=== PATIENT | female | born 1945 | race Asian ===

== ENCOUNTER 2017-05-04 10:42 | Day surgery (SDC) | payer OTHER ==
[2017-05-04 11:23] VITALS: BMI 22.6
[2017-05-04 11:40] VITALS: BP 139/75; PULSE 66; TEMP 99.1
[2017-05-04] MEDS ORDERED: OMALIZUMAB 150 MG/VIAL ML SQ SCH (12:00)
[2017-05-04] MEDS ORDERED: EPINEPHrine 1:1,000 0.3 MG/0.3 ML SYR IM SCH (12:15)
== END 2017-05-04 11:45 | disposition home or self-care (01) ==
LOC: JINFUSION 10:42
PROVIDERS: ATTEND Internal Medicine Pulmonary Disease
PROC: 3E013GC Introduction of Other Therapeutic Substance into Subcutaneous Tissue, Percutaneous Approach (ICD-10-PCS; principal; 2017-05-04)
DX: J45.40 Moderate persistent asthma, uncomplicated (principal)
CPT/HCPCS: 96372; J2357

== ENCOUNTER 2017-05-15 10:02 | Day surgery (SDC) | payer OTHER ==
[2017-05-15] MEDS ORDERED: EPINEPHrine/PF 1 MG/1 ML (1:1,000) AMPULE SQ PRN (10:31)
[2017-05-15] MEDS ORDERED: OMALIZUMAB 150 MG/VIAL ML SQ ONE (11:00)
[2017-05-15 11:51] VITALS: BP 130/64; PULSE 67; TEMP 98.6
== END 2017-05-15 11:58 | disposition home or self-care (01) ==
LOC: JINFUSION 10:02
PROVIDERS: ATTEND Internal Medicine Pulmonary Disease
PROC: 3E013GC Introduction of Other Therapeutic Substance into Subcutaneous Tissue, Percutaneous Approach (ICD-10-PCS; principal; 2017-05-15)
DX: J45.40 Moderate persistent asthma, uncomplicated (principal)
CPT/HCPCS: 96372; J2357

== ENCOUNTER 2017-06-08 10:07 | Day surgery (SDC) | payer OTHER ==
[2017-06-08 10:55] VITALS: BP 122/62; PULSE 72; TEMP 98.1
[2017-06-08] MEDS ORDERED: XOLAIR 150 MG SQ ONE (11:30)
[2017-06-08] MEDS ORDERED: EPINEPHrine/PF 1 MG/1 ML (1:1,000) AMPULE SQ PRN (11:30)
[2017-06-08] MEDS ORDERED: XOLAIR SCJ SCH (11:40)
== END 2017-06-08 11:45 | disposition home or self-care (01) ==
LOC: JINFUSION 10:07
PROVIDERS: ATTEND Internal Medicine Pulmonary Disease
PROC: 3E013GC Introduction of Other Therapeutic Substance into Subcutaneous Tissue, Percutaneous Approach (ICD-10-PCS; principal; 2017-06-08)
DX: J45.40 Moderate persistent asthma, uncomplicated (principal)
CPT/HCPCS: 96372

== ENCOUNTER 2017-06-22 09:31 | Day surgery (SDC) | payer OTHER ==
[2017-06-22] MEDS ORDERED: XOLAIR 150 MG SQ ONE (11:00)
[2017-06-22] MEDS ORDERED: EPINEPHrine/PF 1 MG/1 ML (1:1,000) AMPULE SQ PRN (11:00)
[2017-06-22 11:20] VITALS: BP 164/67; PULSE 67; TEMP 98.8
== END 2017-06-22 11:21 | disposition home or self-care (01) ==
LOC: JINFUSION 09:31
PROVIDERS: ATTEND Internal Medicine Pulmonary Disease
PROC: 3E013GC Introduction of Other Therapeutic Substance into Subcutaneous Tissue, Percutaneous Approach (ICD-10-PCS; principal; 2017-06-22)
DX: J45.40 Moderate persistent asthma, uncomplicated (principal)
CPT/HCPCS: 96372

== ENCOUNTER 2017-07-13 09:52 | Day surgery (SDC) | payer OTHER ==
[2017-07-13] MEDS ORDERED: EPINEPHrine/PF 1 MG/1 ML (1:1,000) AMPULE SQ PRN (10:35)
[2017-07-13] MEDS ORDERED: OMALIZUMAB 150 MG/VIAL ML SQ ONE (11:00)
[2017-07-13 11:30] VITALS: BP 122/58; PULSE 64; TEMP 98
== END 2017-07-13 11:30 | disposition home or self-care (01) ==
LOC: JINFUSION 09:52
PROVIDERS: ATTEND Internal Medicine Pulmonary Disease
PROC: 3E013GC Introduction of Other Therapeutic Substance into Subcutaneous Tissue, Percutaneous Approach (ICD-10-PCS; principal; 2017-07-13)
DX: J45.40 Moderate persistent asthma, uncomplicated (principal)
CPT/HCPCS: 96372

== ENCOUNTER 2017-08-04 09:04 | Day surgery (SDC) | payer OTHER ==
[2017-08-04] MEDS ORDERED: EPINEPHrine 1:1,000 0.3 MG/0.3 ML SYR IM PRN (09:19)
[2017-08-04] MEDS ORDERED: OMALIZUMAB 150 MG/VIAL ML SQ ONE (09:30)
[2017-08-04 09:35] VITALS: TEMP 98.1
[2017-08-04 10:54] VITALS: BP 136/70; PULSE 79
== END 2017-08-04 10:50 | disposition home or self-care (01) ==
LOC: JINFUSION 09:04
PROVIDERS: ATTEND Internal Medicine Pulmonary Disease
PROC: 3E013GC Introduction of Other Therapeutic Substance into Subcutaneous Tissue, Percutaneous Approach (ICD-10-PCS; principal; 2017-08-04)
DX: J45.40 Moderate persistent asthma, uncomplicated (principal)
CPT/HCPCS: 96372; J2357

== ENCOUNTER 2017-10-05 09:32 | Day surgery (SDC) | payer OTHER ==
[2017-10-05 10:14] VITALS: PULSE 63; TEMP 98.6
[2017-10-05] MEDS ORDERED: EPINEPHrine/PF 1 MG/1 ML (1:1,000) AMPULE SQ PRN (10:19)
[2017-10-05] MEDS ORDERED: EPINEPHrine/PF 1 MG/1 ML (1:1,000) AMPULE ONE (10:22)
[2017-10-05] MEDS ORDERED: OMALIZUMAB 150 MG/VIAL ML SQ ONE (10:30)
[2017-10-05 12:51] VITALS: BP 126/60
== END 2017-10-05 11:10 | disposition home or self-care (01) ==
LOC: JASU-ENDO 09:32
PROVIDERS: ATTEND Internal Medicine Pulmonary Disease
PROC: 3E013GC Introduction of Other Therapeutic Substance into Subcutaneous Tissue, Percutaneous Approach (ICD-10-PCS; principal; 2017-10-05)
DX: J45.40 Moderate persistent asthma, uncomplicated (principal)
CPT/HCPCS: 96372; J2357

== ENCOUNTER 2017-10-19 09:40 | Day surgery (SDC) | payer OTHER ==
[2017-10-19] MEDS ORDERED: EPINEPHrine 1:1,000 1 MG/1 ML - 30ML VIAL (INJECTION) SQ PRN (10:09)
[2017-10-19] MEDS ORDERED: OMALIZUMAB 150 MG/VIAL ML SQ ONE (10:15)
[2017-10-19 12:27] VITALS: BP 137/64; PULSE 69; TEMP 98.7
== END 2017-10-19 11:20 | disposition home or self-care (01) ==
LOC: JINFUSION 09:40
PROVIDERS: ATTEND Internal Medicine Pulmonary Disease
PROC: 3E013GC Introduction of Other Therapeutic Substance into Subcutaneous Tissue, Percutaneous Approach (ICD-10-PCS; principal; 2017-10-19)
DX: J45.40 Moderate persistent asthma, uncomplicated (principal)
CPT/HCPCS: 96372; J2357

== ENCOUNTER 2017-11-16 09:28 | Day surgery (SDC) | payer OTHER ==
[2017-11-16] MEDS ORDERED: EPINEPHrine/PF 1 MG/1 ML (1:1,000) AMPULE SQ PRN (09:59)
[2017-11-16] MEDS ORDERED: OMALIZUMAB 150 MG/VIAL ML SQ ONE (10:00)
[2017-11-16 12:23] VITALS: BP 130/78; PULSE 79; TEMP 98.3
== END 2017-11-16 11:10 | disposition home or self-care (01) ==
LOC: JASU-ENDO 09:28
PROVIDERS: ATTEND Internal Medicine Pulmonary Disease
PROC: 3E013GC Introduction of Other Therapeutic Substance into Subcutaneous Tissue, Percutaneous Approach (ICD-10-PCS; principal; 2017-11-16)
DX: J45.50 Severe persistent asthma, uncomplicated (principal)
CPT/HCPCS: 96372; J2357

== ENCOUNTER 2017-11-30 09:01 | Day surgery (SDC) | payer OTHER ==
[2017-11-30] MEDS ORDERED: WATER FOR INJ,STERILE 10 ML ONE ×2 (09:19→09:20)
[2017-11-30] MEDS ORDERED: EPINEPHrine/PF 1 MG/1 ML (1:1,000) AMPULE SQ PRN (10:00)
[2017-11-30 10:14] VITALS: BP 139/66; PULSE 75; TEMP 98.4
[2017-11-30] MEDS ORDERED: OMALIZUMAB 150 MG/VIAL ML SQ ONE (10:30)
== END 2017-11-30 10:10 | disposition home or self-care (01) ==
LOC: JINFUSION 09:01
PROVIDERS: ATTEND Internal Medicine Pulmonary Disease
PROC: 3E013GC Introduction of Other Therapeutic Substance into Subcutaneous Tissue, Percutaneous Approach (ICD-10-PCS; principal; 2017-11-30)
DX: J45.50 Severe persistent asthma, uncomplicated (principal)
CPT/HCPCS: 96372; J2357

== ENCOUNTER 2017-12-14 09:36 | Day surgery (SDC) | payer BC, OTHER ==
[2017-12-14 09:56] VITALS: BP 145/66; PULSE 72; TEMP 97.7
[2017-12-14] MEDS ORDERED: EPINEPHrine/PF 1 MG/1 ML (1:1,000) AMPULE SQ PRN (10:11)
[2017-12-14] MEDS ORDERED: OMALIZUMAB 150 MG/VIAL ML SQ ONE (10:15)
== END 2017-12-14 10:34 | disposition home or self-care (01) ==
LOC: JINFUSION 09:36
PROVIDERS: ATTEND Internal Medicine Pulmonary Disease
PROC: 3E013GC Introduction of Other Therapeutic Substance into Subcutaneous Tissue, Percutaneous Approach (ICD-10-PCS; principal; 2017-12-14)
DX: J45.50 Severe persistent asthma, uncomplicated (principal)
CPT/HCPCS: 96372; J2357

== ENCOUNTER 2018-01-18 09:56 | Day surgery (SDC) | payer OTHER ==
[2018-01-18] MEDS ORDERED: EPINEPHrine/PF 1 MG/1 ML (1:1,000) AMPULE SQ PRN (10:35)
[2018-01-18] MEDS ORDERED: OMALIZUMAB 150 MG/VIAL ML SQ ONE (11:00)
[2018-01-18 12:34] VITALS: BP 140/84; PULSE 80; TEMP 99
== END 2018-01-18 12:25 | disposition home or self-care (01) ==
LOC: JASU-ENDO 09:56
PROVIDERS: ATTEND Internal Medicine Pulmonary Disease
PROC: 3E013GC Introduction of Other Therapeutic Substance into Subcutaneous Tissue, Percutaneous Approach (ICD-10-PCS; principal; 2018-01-18)
DX: J45.50 Severe persistent asthma, uncomplicated (principal)
CPT/HCPCS: 96372; J2357

== ENCOUNTER 2018-02-01 09:04 | Day surgery (SDC) | payer OTHER ==
[2018-02-01] MEDS ORDERED: EPINEPHrine 1:1,000 0.3 MG/0.3 ML SYR IM PRN (09:38)
[2018-02-01] MEDS ORDERED: OMALIZUMAB 150 MG/VIAL ML SQ ONE (09:45)
[2018-02-01 11:11] VITALS: BP 123/61; PULSE 75; TEMP 98.6
== END 2018-02-01 11:10 | disposition home or self-care (01) ==
LOC: JINFUSION 09:04
PROVIDERS: ATTEND Internal Medicine Pulmonary Disease
PROC: 3E013GC Introduction of Other Therapeutic Substance into Subcutaneous Tissue, Percutaneous Approach (ICD-10-PCS; principal; 2018-02-01)
DX: J45.50 Severe persistent asthma, uncomplicated (principal)
CPT/HCPCS: 96372; J2357

== ENCOUNTER 2018-03-01 09:26 | Day surgery (SDC) | payer OTHER ==
[~2018-03-01 09:26] MED LIST: EPINEPHrine/PF 1 MG/1 ML (1:1,000) AMPULE SQ PRN; OMALIZUMAB 150 MG/VIAL ML SQ ONE
[2018-03-01 13:39] VITALS: BP 143/68; PULSE 80; TEMP 98.2
== END 2018-03-01 10:50 | disposition home or self-care (01) ==
LOC: JINFUSION 09:26
PROVIDERS: ATTEND Internal Medicine Pulmonary Disease
PROC: 3E033GC Introduction of Other Therapeutic Substance into Peripheral Vein, Percutaneous Approach (ICD-10-PCS; principal; 2018-03-01)
DX: J45.50 Severe persistent asthma, uncomplicated (principal)
CPT/HCPCS: 96365; 96374

== ENCOUNTER 2018-03-15 09:35 | Day surgery (SDC) | payer OTHER ==
[2018-03-15] MEDS ORDERED: EPINEPHrine 1:1,000 0.3 MG/0.3 ML SYR IM PRN (09:52)
[2018-03-15] MEDS ORDERED: OMALIZUMAB 150 MG/VIAL ML SQ ONE (10:00)
[2018-03-15 10:08] VITALS: BP 132/61; PULSE 66; TEMP 98.2
== END 2018-03-15 11:13 | disposition home or self-care (01) ==
LOC: JASU-ENDO 09:35 → EDSTATUS 10:00 → JASU-ENDO 11:13
PROVIDERS: ATTEND Internal Medicine Pulmonary Disease
PROC: 3E013GC Introduction of Other Therapeutic Substance into Subcutaneous Tissue, Percutaneous Approach (ICD-10-PCS; principal; 2018-03-15)
DX: J45.50 Severe persistent asthma, uncomplicated (principal)
CPT/HCPCS: 96372; J2357